=== PATIENT | male | born 1990 | race Two or more races ===

== ENCOUNTER 2025-03-11 07:36 | Emergency (ER) | payer SELFPAY ==
[~2025-03-11] VITALS: Ht 167.6 cm; Wt 89.8 kg
[2025-03-11 07:53] VITALS: BP 134/92; TEMP 98.2; O2SAT 97
== END 2025-03-11 08:22 | disposition home or self-care (01) ==
LOC: ER 07:53
DX: L98.9 Disorder of the skin and subcutaneous tissue, unspecified (principal); R22.0 Localized swelling, mass and lump, head